=== PATIENT | female | born 1985 | race Two or more races ===

== ENCOUNTER 2023-10-17 07:22 | Emergency (ER) | payer MEDICAID, OTHER ==
[~2023-10-17] VITALS: Ht 162.6 cm; Wt 95.4 kg
[2023-10-17] MEDS: cloNIDine HCL 0.1 MG TAB PO ONE (07:40)
[2023-10-17] MEDS: cloNIDine HCL 0.1 MG TAB ONE (07:41)
[2023-10-17 07:55] LABS: Basophils # (auto) 0.1 10 ^3/uL (0-0.2); Basophils % (auto) 0.9 % (0.0-2.0); Eosinophils # (auto) 0.3 10 ^3/uL (0-0.8); Eosinophils % (auto) 3.8 % (0.0-7.0); Hematocrit 43.1 % (36.0-46.0); Hemoglobin 14.4 g/dL (12.2-16.2); Lymphocytes # (auto) 4.4 10 ^3/uL (0.4-5.4); Lymphocytes % (auto) 48.9 % (10.0-50.0); Mean Corpuscular Hemoglobin 28.6 pg (28.0-32.0); Mean Corpuscular Hgb Conc. 33.5 g/dL (32.0-36.0); Mean Corpuscular Volume 85.5 fL (80.0-100.0); Monocytes # (auto) 0.5 10 ^3/uL (0-1.3); Monocytes % (auto) 5.6 % (0.0-12.0); Neutrophils # (auto) 3.6 10 ^3/uL (1.6-8.6); Neutrophils % (auto) 40.8 % (37.0-80.0); Nucleated Red Blood Cells % 0.1 %; Red Blood Cells 5.04 10^6/uL (4.0-5.20); Red Cell Distribution Width 13.9 % (11.8-14.3); White Blood Cell 8.9 10^3/uL (4.4-10.8)
[2023-10-17 07:58] LABS: Urine Bacteria None Seen /hpf (None Seen)
[2023-10-17 08:05] VITALS: RESP 15; O2SAT 99
[2023-10-17 08:09] LABS: Alanine Aminotransferase 102 U/L (7-40); Albumin 4.6 g/dL (3.2-4.8); Alkaline Phosphatase 76 U/L (46-116); Anion Gap 6 (5-15); Aspartate Aminotransferase 57 U/L (13-40); Blood Urea Nitrogen 11 mg/dL (9-23); Calcium 9.3 mg/dL (8.5-10.1); Carbon Dioxide 28 mmol/L (20-30); Chloride 105 mmol/L (98-107); Glucose 106 mg/dL (74-106); Sodium 139 mmol/L (136-145)
[2023-10-17 08:10] LABS: Urine Blood 1+ /uL (Negative); Urine Clarity Clear (Clear); Urine Color Straw (Yellow); Urine Protein, UAD TRACE (Negative); Urine Urobilinogen Normal (Negative); Urine WBC 1 /hpf (0 - 5); Urine pH 7.5 (5.0-9.0)
[2023-10-17 08:10] LABS: Bilirubin, Total 0.2 mg/dL (0.2-1.0); Total Protein 7.4 g/dL (5.7-8.2)
[2023-10-17] MEDS ORDERED: METO-281 PO (17:33)
[2023-10-17] MEDS ORDERED: HYDR-4902 PO (17:33)
[2023-10-17] MEDS: METOCLOPRAMIDE HCL 5MG/ml INJ 2ml VIAL IM ONE (17:51)
[2023-10-17] MEDS: KETOROLAC TROMETH 60MG/2ML VIAL IM ONE (17:51)
[2023-10-17 18:09] VITALS: BP 132/80; PULSE 65; RESP 16; O2SAT 97
== END 2023-10-17 18:11 | disposition home or self-care (01) ==
LOC: ER 07:22
DX: R51.9 Headache, unspecified (principal); R10.2 Pelvic and perineal pain; I10 Essential (primary) hypertension; Z79.899 Other long term (current) drug therapy
CPT/HCPCS: 36415; 70450; 80053; 81001; 82962; 84484; 84702; 85025; 93005; 96372; 99285; J1885; 96374

== ENCOUNTER 2024-08-18 19:52 | Emergency (ER) | payer MEDICAID ==
[~2024-08-18] VITALS: Ht 162.6 cm; Wt 93.5 kg
[~2024-08-18 19:52] MED LIST: HYDR-4902 PO; METO-281 PO
[2024-08-18 19:58] VITALS: BP 168/95; PULSE 85; RESP 12; TEMP 98.7; O2SAT 98
--- NOTE | 2024-08-18 20:09 | ED.PDOC ---
History of Present Illness(SKN HPI Comments THIS IS A 39-YEAR-OLD FEMALE PRESENTS TO THE ED CHIEF COMPLAINT RASH. PATIENT STATES RASH STARTED 3 DAYS AGO STARTED ON HER LEFT SHOULDER SPREAD ACROSS POSTERIOR NECK AND BACK. NO ITCHINESS DOES COMPLAIN OF PAIN BURNING AND NUMBNESS. SHE ALSO STATES STARTED AMOXICILLIN ON AROUND FOR A SORE THROAT SHE NOTES CONCERN THAT IT WAS A POSSIBLE ALLERGIC REACTION TO THE AMOXICILLIN. DENIES FEVERS, CHILLS, NAUSEA, VOMITING, RECENT TRAVEL, THROAT SWELLING, DIFFICULTY BREATHING, CHEST PAIN, SHORTNESS OF BREATH OR RECENT ILLNESS. Time Seen by MD: 19:54 Primary Care Provider: NONE History of Present Illness: Nurses Notes, Medications, Allergies Allergies: Coded Allergies: NO KNOWN ALLERGIES (Unverified , 10/17/23) Home Meds Active Scripts Hydrocodone-Acetaminophen (Hydrocodone Bitartrate/AC 5-325 mg) 1 Tab Tab, 1 TAB PO BID for 5 Days, #10 TAB Prov:XAVI STEPHENSON MD 10/17/23 Metoclopramide Hcl (Reglan) 10 Mg Tab, 10 MG PO BID for 5 Days, #10 TAB Prov:XAVI STEPHENSON MD 10/17/23 Information Source: Patient Past Medical History PAST MEDICAL HISTORY: HTN Surgical History: Denies all surgeries SOLE ASSESSOR History: Denies all SOLE ASSESSOR Hx Family History Family History: Reviewed,noncontributory to illness Social History Smoker: Non-Smoker Alcohol: Denies ETOH Use Drugs: Denies Drug Use Lives In: Home Constitutional: denies: chills, diaphoresis, fatigue, fever, malaise, sweats, weakness, others EENTM: denies: blurred vision, double vision, ear bleeding, ear discharge, ear drainage, ear pain, ear ringing, eye pain, eye redness, hearing loss, mouth pain, mouth swelling, nasal discharge, nose bleeding, nose congestion, nose pain, photophobia, tearing, throat pain, throat swelling, voice changes, others Respiratory: denies: cough, hemoptysis, orthopnea, SOB at rest, shortness of breath, SOB with excertion, stridor, wheezing, others Cardiovascular: denies: chest pain, dizzy spells, diaphoresis, Dyspnea on exertion, edema, irregular heart beat, left arm pain, lightheadedness, palpitations, PND, syncope, others Gastrointestinal: denies: abdomen distended, abdominal pain, blood streaked bowels, constipated, diarrhea, dysphagia, difficulty swallowing, hematemesis, melena, nausea, poor appetite, poor fluid intake, rectal bleeding, rectal pain, vomiting, others Genitourinary: denies: abnormal vagina bleeding, burning, dyspareunia, dysuria, flank pain, frequency, hematuria, incontinence, pain, , vagina discharge, urgency, others Neurological: denies: dizziness, fainting, headache, left sided numbness, left sided weakness, numbness, paresthesia, pre-existing deficit, right sided numbness, right sided weakness, seizure, speech problems, tingling, tremors, weakness, others Musculoskeletal: denies: back pain, gout, joint pain, joint swelling, muscle pain, muscle stiffness, neck pain, others Integumetry: reports: rash (POSTERIOR NECK, BACK, LEFT SHOULDER); denies: bruises, change in color, change in hair/nails, dryness, laceration, lesions, lumps, wounds, others Allergic/Immunocompromised: denies: Difficulty Healing, Frequent Infections, Hives, Itching, others Hematologic/Lymphatic: denies: anemia, blood clots, easy bleeding, easy bruising, swollen glands, others Endocrine: denies: excessive hunger, excessive sweating, excessive thirst, excessive urination, flushing, intolerance to cold, intolerance to heat, unexplained weight gain, unexplained weight loss, others Psychiatric: denies: anxiety, bipolar disorder, depression, hopeless, panic disorder, schizophrenia, sleepless, suicidal, others Physical Exam General Appearance: No Apparent Distress, Normal HEENT: Pharynx Normal Neck: Full Range of Motion, Non-Tender Respiratory: Lungs Clear, No Respiratory Distress, Normal Breath Sounds Cardiovascular: No Murmur, Normal Peripheral Pulses, Regular Rate/Rhythm Breast Exam: Deferred Gastrointestinal: Non Tender, Soft Genitalia: Deferred Pelvic: Deferred Rectal: Deferred Extremities: No calf tenderness, Normal capillary refill, Normal inspection, Normal range of motion, Non-tender Musculoskeletal : Apperance: Normal Neurologic: Alert, bariatric surgeon II-XII nml as Tested, No Motor Deficits, Normal Affect, Normal Mood, No Sensory Deficits Cerebellar Function: Normal Reflexes: Normal Skin: Dry, Normal Color, Rash (HERPETIC RASH TO POSTERIOR NECK INTO LEFT SHOULDER FOLLOWING A DERMATOME PATTERN. NO NOTED OPEN LESIONS OR DRAINAGE), Warm Lymphatic: No Adenopathy Was a procedure done? Was a procedure done?: No Differential Diagnosis (INTG) Differential Diagnosis: Cellulitis, Drug Reaction, Impetigo, Scabies, Tinea X-Ray, Labs, Meds, VS Comment LIKELY SHINGLES VERSUS ALLERGIC REACTION TO THE AMOXICILLIN. TRIAL VALTREX, AND LIDOCAINE CREAM SCRIPT TO PHARMACY. ADVISED TO FOLLOW UP WITH HER PCP IN 1-2 DAYS. REST, INCREASE P.O. FLUIDS TAKE [id number] MULTIVITAMIN. ER RETURN PRECAUTIONS GIVEN PATIENT INDICATES UNDERSTANDING AGREES WITH DISCHARGE PLAN OF CARE. Time of 1ST Reevaluation: 20:07 Reevaluation 1ST: Improved Patient Education/Counseling: Diagnosis, Treatment, Prognosis, Need For Follow Up Family Education/Counseling: No Family Present Departure 1 Departure Time of Disposition: 20:09 Impression: Primary Impression: Shingles Qualified Codes: B02.9 - Zoster without complications Disposition: 01 HOME / SELF CARE / HOMELESS Condition: Stable e-Prescriptions Ibuprofen (Ibuprofen) 800 Mg Tab 1 TAB PO TID PRN for 7 Days, #21 TAB Prov: ETHAN MCKEON 08/18/24 Lidocaine Hcl (Lidocaine) 3 % Cre 3 % EX TID PRN for 5 Days, #15 GRAMS APPLY THIN LAYER TO THE AFFECTED AREA 3 TIMES A DAY NEEDED FOR PAIN OR ITCHING Prov: ETHAN MCKEON 08/18/24 Valacyclovir HCl (Valacyclovir HCl) 1 Gm Tab 1 GM PO TID for 7 Days, #21 TAB Prov: ETHAN MCKEON 08/18/24 Discharged With: Significant Other Critical Care Note Critical Care Time?: No Stability Stability form required: ETHAN Hernandez Aug 18, 2024 20:09
[2024-08-18] MEDS ORDERED: IBUP-1456 PO (20:12)
[2024-08-18] MEDS ORDERED: LIDO3CRE16 EX (20:12)
[2024-08-18] MEDS ORDERED: VALA1TAB34 PO (20:12)
== END 2024-08-18 20:32 | disposition home or self-care (01) ==
LOC: ER 19:52
DX: B02.9 Zoster without complications (principal); I10 Essential (primary) hypertension

== ENCOUNTER 2024-08-25 14:37 | Emergency (ER) | payer MEDICAID ==
[~2024-08-25] VITALS: Ht 162.6 cm; Wt 95.1 kg
[~2024-08-25 14:37] MED LIST changes: +IBUP-1456 PO; +VALA1TAB34 PO
[2024-08-25] MEDS ORDERED: VALA500T33 PO (17:01)
[2024-08-25] MEDS ORDERED: HYDR-4902 PO (17:01)
[2024-08-25] MEDS ORDERED: IBUP-1455 PO (17:01)
--- NOTE | 2024-08-25 17:02 | ED.PDOC ---
History of Present Illness(SKN HPI Comments This patient is a pleasant but morbidly obese 39-year-old female who arrives to the ED today for re-evaluation of a shingles concern that has been ongoing for the past two weeks. Patient was seen this facility when the event initially occurred and sent home with some antiviral and ibuprofen. Patient arrives today stating that has been exquisitely painful and is not seem to be resolving as quickly she expected. Patient denies any fever nausea or vomiting. Vital signs were stable on arrival. Chief Complaint: Rash Time Seen by MD: 15:11 Primary Care Provider: DENIES History of Present Illness: Nurses Notes Allergies: Coded Allergies: NO KNOWN ALLERGIES (Unverified , 10/17/23) Home Meds Active Scripts Ibuprofen (Ibuprofen) 800 Mg Tab, 1 TAB PO TID PRN for 7 Days, #21 TAB Prov:ETHAN MCKEON 08/18/24 Valacyclovir HCl (Valacyclovir HCl) 1 Gm Tab, 1 GM PO TID for 7 Days, #21 TAB Prov:ETHAN MCKEON 08/18/24 Hydrocodone-Acetaminophen (Hydrocodone Bitartrate/AC 5-325 mg) 1 Tab Tab, 1 TAB PO BID for 5 Days, #10 TAB Prov:XAVI STEPHENSON MD 10/17/23 Metoclopramide Hcl (Reglan) 10 Mg Tab, 10 MG PO BID for 5 Days, #10 TAB Prov:XAVI STEPHENSON MD 10/17/23 Discontinued Scripts Lidocaine Hcl (Lidocaine) 3 % Cre, 3 % EX TID PRN for 5 Days, #15 GRAMS APPLY THIN LAYER TO THE AFFECTED AREA 3 TIMES A DAY NEEDED FOR PAIN OR ITCHING Prov:ETHAN MCKEON 08/18/24 Information Source: Patient Mode of Arrival: Ambulatory Severity: Moderate Timing: Weeks Duration: Since onset Prehospital treatment: Pain Meds Location: Back, Chest Mechanism: Spontaneous Onset Object: None Condition of Object: None Tetanus: UTD Associated Signs and Symptoms: Redness, Swelling Past Medical History PAST MEDICAL HISTORY: HTN Surgical History: Denies all surgeries ERISA ATTORNEY History: Denies all ERISA ATTORNEY Hx Family History Family History: Reviewed,noncontributory to illness Social History Smoker: Non-Smoker Alcohol: Denies ETOH Use Drugs: Denies Drug Use Lives In: Home Constitutional: denies: chills, diaphoresis, fatigue, fever, malaise, sweats, weakness, others EENTM: denies: blurred vision, double vision, ear bleeding, ear discharge, ear drainage, ear pain, ear ringing, eye pain, eye redness, hearing loss, mouth pain, mouth swelling, nasal discharge, nose bleeding, nose congestion, nose pain, photophobia, tearing, throat pain, throat swelling, voice changes, others Respiratory: denies: cough, hemoptysis, orthopnea, SOB at rest, shortness of breath, SOB with excertion, stridor, wheezing, others Cardiovascular: denies: chest pain, dizzy spells, diaphoresis, Dyspnea on exertion, edema, irregular heart beat, left arm pain, lightheadedness, palpitations, PND, syncope, others Gastrointestinal: denies: abdomen distended, abdominal pain, blood streaked bowels, constipated, diarrhea, dysphagia, difficulty swallowing, hematemesis, m tk, nausea, poor appetite, poor fluid intake, rectal bleeding, rectal pain, vomiting, others Genitourinary: denies: abnormal vagina bleeding, burning, dyspareunia, dysuria, flank pain, frequency, hematuria, incontinence, pain, , vagina discharge, urgency, others Neurological: denies: dizziness, fainting, headache, left sided numbness, left sided weakness, numbness, paresthesia, pre-existing deficit, right sided numbness, right sided weakness, seizure, speech problems, tingling, tremors, weakness, others Musculoskeletal: denies: back pain, gout, joint pain, joint swelling, muscle pain, muscle stiffness, neck pain, others Integumetry: reports: rash (Rash to upper back, left shoulder and left upper chest); denies: bruises, change in color, change in hair/nails, dryness, laceration, lesions, lumps, wounds, others Allergic/Immunocompromised: denies: Difficulty Healing, Frequent Infections, Hives, Itching, others Hematologic/Lymphatic: denies: anemia, blood clots, easy bleeding, easy bruising, swollen glands, others Endocrine: denies: excessive hunger, excessive sweating, excessive thirst, excessive urination, flushing, intolerance to cold, intolerance to heat, unexplained weight gain, unexplained weight loss, others Psychiatric: denies: anxiety, bipolar disorder, depression, hopeless, panic disorder, schizophrenia, sleepless, suicidal, others Physical Exam General Appearance: Moderate Distress (Due to rash pain), Normal HEENT: Normal ENT Inspection, Pharynx Normal, TMs Normal Neck: Full Range of Motion, Non-Tender, Normal, Normal Inspection Respiratory: Chest Non-Tender, Lungs Clear, No Accessory Muscle Use, No Respiratory Distress, Normal Breath Sounds Cardiovascular: No Edema, No JVD, No Murmur, No Gallop, Normal Peripheral Pulses, Regular Rate/Rhythm Breast Exam: Deferred Gastrointestinal: No Organomegaly, Non Tender, No Pulsatile Mass, Normal Bowel Sounds, Soft Genitalia: Deferred Pelvic: Deferred Rectal: Deferred Extremities: No calf tenderness, Normal capillary refill, Normal inspection, Normal range of motion, Non-tender, No pedal edema Neurologic: Alert, payroll administrative assistant II-XII nml as Tested, No Motor Deficits, Normal Affect, Normal Mood, No Sensory Deficits Cerebellar Function: Normal Reflexes: Normal Skin: Rash (Patient displays a text book shingles rash with spots of honey crusting as well as scalp formation from her left sided upper back, over her trapezius and onto her left-sided upper chest. Mild weepage noted from multiple sites. No signs of infection.) Lymphatic: No Adenopathy Was a procedure done? Was a procedure done?: No Differential Diagnosis (INTG) Differential Diagnosis: Other (Shingles) Differential Diagnosis: Cellulitis X-Ray, Labs, Meds, VS Vital Signs Date Time Temp Pulse Resp B/P (MAP) Pulse Ox O2 Delivery O2 Flow Rate FiO2 08/25/24 14:50 99.0 76 18 169/99 (122) 98 X-Ray, Labs, Meds, VS Comment Discussed the sequelae of shingles events with the patient. Advise utilizing medication as directed. Pain medication as needed. Time of 1ST Reevaluation: 16:59 Reevaluation 1ST: Unchanged Consultation: PCP Patient Education/Counseling: Diagnosis, Treatment Family Education/Counseling: Diagnosis, Treatment Departure 1 Departure Time of Disposition: 16:59 Impression: Primary Impression: Shingles Disposition: 01 HOME / SELF CARE / HOMELESS Condition: Stable Additional Instructions: Advise utilizing antiviral medication as directed as well as pain medication as needed. e-Prescriptions Hydrocodone-Acetaminophen (Hydrocodone Bitartrate/AC 5-325 mg) 1 Tab Tab 1 TAB PO Q6HP PRN, #30 TAB Prov: HALLE,MURALI Mikhail PAC 08/25/24 Ibuprofen Micronized (Ibuprofen) 800 Mg Tab 800 MG PO Q8HP PRN, #30 TAB 1 Refill Prov: HALLEMURALI [facility] 08/25/24 Valacyclovir Hcl (Valacyclovir Hcl) 500 Mg Tab 2 TAB PO Q8HR for 7 Days, #42 TAB 1 Refill Prov: MURALI NERI [facility] 08/25/24 Discharged With: Self Critical Care Note Critical Care Time?: No Stability Stability form required: No Heart Score Heart Score: Heart Score Response (Comments) Value History N/A 0 EKG N/A 0 Age N/A 0 Risk Factors N/A 0 Troponin N/A 0 Total 0 MURALI NERI PAC Aug 25, 2024 17:02
[2024-08-25 17:03] VITALS: BP 150/90; PULSE 77; RESP 16; TEMP 99; O2SAT 97
== END 2024-08-25 17:13 | disposition home or self-care (01) ==
LOC: ER 14:37
DX: B02.9 Zoster without complications (principal); I10 Essential (primary) hypertension; Z79.899 Other long term (current) drug therapy